=== PATIENT | female | born 1935 ===

== ENCOUNTER → 2021-11-04 10:00 | Outpatient (CLI) | payer OTHER | END | disposition home or self-care (01) | LOC: PPH VACUNA 10:00 | PROVIDERS: ATTEND Emergency Medicine Pediatric Emergency Medicine | DX: Z23 Encounter for immunization (principal) ==

== ENCOUNTER 2023-11-04 07:55 | Outpatient (CLI) | payer OTHER | END 2023-11-04 08:14 | disposition home or self-care (01) | LOC: RX STUDY 07:55 | PROVIDERS: ATTEND Otolaryngology Plastic Surgery within the Head & Neck | DX: R13.19 Other dysphagia (principal) ==